=== PATIENT | male | born 1935 | race Caucasian/White ===

== ENCOUNTER 2017-06-08 02:00 | Emergency (ER) | payer MEDICARE ==
[~2017-06-08] VITALS: Ht 175.3 cm; Wt 102.1 kg
[2017-06-08] MEDS ORDERED: Esgic Tablet1 EACH PO (04:35)
[2017-06-08] MEDS ORDERED: ASPI81CH PO (05:03)
== END 2017-06-08 04:47 | disposition home or self-care (01) ==
LOC: ER 02:00
DX: R51 Headache (principal); Z86.73 Personal history of transient ischemic attack (TIA), and cerebral infarction without residual deficits; Z95.1 Presence of aortocoronary bypass graft; Z87.891 Personal history of nicotine dependence; Z88.0 Allergy status to penicillin
CPT/HCPCS: 93005; 93010; 96374; 96375; 99284; J1170; J1885; J2405